=== PATIENT | female | born 1945 | race Caucasian/White ===

== ENCOUNTER → 2016-11-12 | Outpatient (CLI) | payer MEDICARE, BC ==
--- NOTE | 2016-11-16 10:36 | MM ---
Reason for exam: screening (asymptomatic). Last mammogram was performed 1 year ago. History: Patient is postmenopausal. Benign right breast needle localzation of the right breast, December 26, 2009. Physical Findings: A clinical breast exam by your physician is recommended on an annual basis and results should be correlated with mammographic findings. MG Screening Mammo w CAD Bilateral CC and MLO view(s) were taken. Prior study comparison: November 11, 2015, bilateral MG screening mammo w CAD. November 08, 2014, bilateral MG screening mammo w CAD. October 22, 2013, CAD bilateral diagnostic mammogram. August 03, 2012, CAD bilateral diagnostic mammogram. There are scattered fibroglandular densities. Density adjacent to the central right breast area of fat necrosis has increased from older priors and can be reassessed in 6 months. Otherwise, no significant change. ASSESSMENT: Probably benign, BI-RAD 3 RECOMMENDATION: Follow-up diagnostic mammogram of the right breast in 6 months.
== END ==
LOC: RADMAMWWP 10:51
PROVIDERS: ATTEND Family Medicine
DX: Z12.31 Encounter for screening mammogram for malignant neoplasm of breast (principal)

== ENCOUNTER → 2017-11-14 | Outpatient (CLI) | payer MEDICARE, BC ==
--- NOTE | 2017-11-14 13:09 | BD ---
EXAMINATION TYPE: MG DEXA axial skeleton. DATE OF EXAM: 11/14/2017 COMPARISON: None. Baseline exam. CLINICAL HISTORY: Postmenopausal female. Osteoporosis screening. Height: 59 Weight: 162.4 FRAX RISK QUESTIONS: Alcohol (3 or more units per day): no Family History (Parent hip fracture): no Glucocorticoids (More than 3mos): no (Ex: prednisone, prednisolone, methylprednisolone, dexamethasone, and hydrocortisone). History of Fracture in Adulthood: yes Secondary Osteoporosis: 1. Type 1 Diabetes: no 2. Hyperthyroidism: no 3. Menopause before 45: no 4. Malnutrition: no 5. Chronic liver disease: no Rheumatoid Arthritis: no Current Tobacco Use: no RISK FACTORS HISTORY OF: Family History of Osteoporosis: no Active: sometimes Diet low in dairy products/other sources of calcium: no Postmenopausal woman: after age 43 Lost more than 2 inches in height since high school: no Frequent falls: no MEDICATIONS: none Additional History: EXAM MEASUREMENTS: Bone mineral densitometry was performed using the [employer] System. Bone mineral density as measured about the Lumbar spine is: ----- L1-L4(G/cm2): 0.823 T Score Values are as follows: ----- L2: -3.0 ----- L3: -3.1 ----- L4: -3.1 ----- L1-L4: -3.0 Bone mineral density baseline Bone mineral density about the R hip (g/cm2): 0.808 Bone mineral density about the L hip (g/cm2): 0.769 T Score values are as follows: -----R Neck: -1.7 -----L Neck: -1.9 -----R Total: -1.2 -----L Total: -1.6 Bone mineral density baseline IMPRESSION: Osteoporosis (T Score less than -2.5) with regards to the lumbar spine and multiple levels. Osteopeni a with regards to the bilateral hips. There is increased fracture risk and therapy is usually indicated based on age. Re-Screen 1-2 years. NOTE: T-SCORE=SD OF THE YOUNG ADULT MEAN.
--- NOTE | 2017-11-15 08:48 | MM ---
Reason for exam: screening (asymptomatic). Last mammogram was performed 6 months ago. History: Patient is postmenopausal. Benign right breast needle localzation of the right breast, December 26, 2009. Benign excisional biopsy of the left breast, 1988. Took hormonal contraceptives for 17 years beginning at age 21. Took estrogen for 5 years beginning at age 48. Took progesterone for 5 years beginning at age 48. Physical Findings: A clinical breast exam by your physician is recommended on an annual basis and results should be correlated with mammographic findings. MG Diagnostic Mammo w CAD NATALIE Bilateral CC and MLO view(s) were taken. Prior study comparison: May 16, 2017, right breast MG diagnostic mammo RT w CAD. November 12, 2016, bilateral MG screening mammo w CAD. There are scattered fibroglandular densities. The previously seen focal asymmetry surrounding fat necrosis is less conspicuous and not increased from multiple prior change. These results were verbally communicated with the patient and result sheet given to the patient on 11/14/17. ASSESSMENT: Benign, BI-RAD 2 RECOMMENDATION: Routine screening mammogram of both breasts in 1 year.
== END ==
LOC: RADBDWWP 12:34
PROVIDERS: ATTEND Family Medicine
DX: R92.8 Other abnormal and inconclusive findings on diagnostic imaging of breast (principal); M81.8 Other osteoporosis without current pathological fracture; M85.88 Other specified disorders of bone density and structure, other site; Z78.0 Asymptomatic menopausal state
CPT/HCPCS: 77066; 77080

== ENCOUNTER → 2017-12-13 | Outpatient (CLI) | payer MEDICARE, BC ==
[~2017-12-13] MED LIST: DENOSUMAB 60 MG/ML 1 ML SYRINGE SQ ONE; OMALIZUMAB 150 MG VIAL SQ NR
[2017-12-13 09:01] VITALS: PULSE 76; RESP 16; TEMP 97.7
== END | disposition home or self-care (01) ==
LOC: PROCWHC3 08:41
PROVIDERS: ATTEND Family Medicine
DX: M81.0 Age-related osteoporosis without current pathological fracture (principal)
CPT/HCPCS: 96372; J0897

== ENCOUNTER → 2018-06-19 | Outpatient (CLI) | payer MEDICARE, BC ==
[~2018-06-19] MED LIST changes: -OMALIZUMAB 150 MG VIAL SQ NR
[2018-06-19 09:02] VITALS: BP 133/75; PULSE 80; RESP 16; TEMP 97.5
== END ==
LOC: PROCWHC3 08:55
PROVIDERS: ATTEND Family Medicine
DX: M81.0 Age-related osteoporosis without current pathological fracture (principal)
CPT/HCPCS: 96372; J0897

== ENCOUNTER → 2018-11-20 | Outpatient (CLI) | payer MEDICARE, BC ==
--- NOTE | 2018-11-21 13:36 | MM ---
Reason for exam: screening (asymptomatic). Last mammogram was performed 1 year ago. History: Patient is postmenopausal. Benign right breast needle localzation of the right breast, December 26, 2009. Benign excisional biopsy of the left breast, 1988. Took hormonal contraceptives for 17 years beginning at age 21. Took estrogen for 5 years beginning at age 48. Took progesterone for 5 years beginning at age 48. Physical Findings: A clinical breast exam by your physician is recommended on an annual basis and results should be correlated with mammographic findings. MG Screening Mammo w CAD Bilateral CC and MLO view(s) were taken. Prior study comparison: November 14, 2017, bilateral MG diagnostic mammo w CAD NATALIE. May 16, 2017, right breast MG diagnostic mammo RT w CAD. There are scattered fibroglandular densities. No suspicious abnormality. Right upper outer quadrant focal asymmetry is similar to priors back to 2016 with adjacent fat necrosis. No significant changes when compared with prior studies. ASSESSMENT: Benign, BI-RAD 2 RECOMMENDATION: Routine screening mammogram of both breasts in 1 year.
== END | disposition home or self-care (01) ==
LOC: RADMAMWWP 13:21
PROVIDERS: ATTEND Family Medicine
DX: Z12.31 Encounter for screening mammogram for malignant neoplasm of breast (principal)
CPT/HCPCS: 77067

== ENCOUNTER → 2018-12-19 | Outpatient (CLI) | payer MEDICARE, BC ==
[2018-12-19 13:35] VITALS: BP 137/65; PULSE 74; RESP 14; TEMP 97.9
== END ==
LOC: PROCWHC3 13:13
PROVIDERS: ATTEND Family Medicine
DX: M81.0 Age-related osteoporosis without current pathological fracture (principal)
CPT/HCPCS: 96372; J0897

== ENCOUNTER → 2019-07-04 | Outpatient (CLI) | payer MEDICARE, BC ==
[~2019-07-04] MED LIST changes: +DENOSUMAB 60 MG/ML 1 ML SYRINGE SQ NR; -DENOSUMAB 60 MG/ML 1 ML SYRINGE SQ ONE
[2019-07-04 15:12] VITALS: BP 132/74; PULSE 75; RESP 16; TEMP 97.8
== END | disposition home or self-care (01) ==
LOC: PROCWHC3 14:57
PROVIDERS: ATTEND Family Medicine
DX: M81.0 Age-related osteoporosis without current pathological fracture (principal)
CPT/HCPCS: 96372; J0897

== ENCOUNTER → 2020-03-27 | Outpatient (CLI) | payer MEDICARE, BC ==
--- NOTE | 2020-04-01 10:29 | MM ---
Reason for exam: screening (asymptomatic). Last mammogram was performed 1 year and 4 months ago. History: Patient is postmenopausal. Benign right breast needle localzation of the right breast, December 26, 2009. Benign excisional biopsy of the left breast, 1988. Took hormonal contraceptives for 17 years beginning at age 21. Took estrogen for 5 years beginning at age 48. Took progesterone for 5 years beginning at age 48. Physical Findings: A clinical breast exam by your physician is recommended on an annual basis and results should be correlated with mammographic findings. MG Screening Mammo w CAD Bilateral CC and MLO view(s) were taken. Prior study comparison: November 20, 2018, bilateral MG screening mammo w CAD. November 14, 2017, bilateral MG diagnostic mammo w CAD NATALIE. There are scattered fibroglandular densities. Marked increased density forming around 9-12 o'clock right breast fat necrosis. Other benign secretory and oil cyst calcifications. ASSESSMENT: Incomplete: need additional imaging evaluation, BI-RAD 0 RECOMMENDATION: Special view mammogram and ultrasound of the right breast. (3D) [facility] will attempt to contact patient to return for supplemental views and ultrasound.
== END | disposition home or self-care (01) ==
LOC: RADMAMWWP 10:54
PROVIDERS: ATTEND Family Medicine
DX: Z12.31 Encounter for screening mammogram for malignant neoplasm of breast (principal)
CPT/HCPCS: 77067

== ENCOUNTER → 2020-04-02 | Outpatient (CLI) | payer MEDICARE, BC ==
--- NOTE | 2020-04-02 16:30 | BD ---
EXAMINATION TYPE: Axial Bone Density DATE OF EXAM: 04/02/2020 COMPARISON: NONE CLINICAL HISTORY: Postmenopausal screening Height: 59 Weight: 153.1 FRAX RISK QUESTIONS: Alcohol (3 or more units per day): no Family History (Parent hip fracture): no Glucocorticoids (More than 3mos): no (Ex: prednisone, prednisolone, methylprednisolone, dexamethasone, and hydrocortisone). History of Fracture in Adulthood: yes Secondary Osteoporosis: 1. Type 1 Diabetes: no 2. Hyperthyroidism: no 3. Menopause before 45: no 4. Malnutrition: no 5. Chronic liver disease: no Rheumatoid Arthritis: no Current Tobacco Use: no RISK FACTORS HISTORY OF: Family History of Osteoporosis: no Active: yes Diet low in dairy products/other sources of calcium: no Postmenopausal woman: age 45 Lost more than 2 inches in height since high school: no MEDICATIONS: vitamins Osteoporosis Medications: Prolia How Long: total of four shots Additional History: EXAM MEASUREMENTS: Bone mineral densitometry was performed using the [employer] System. Bone mineral density as measured about the Lumbar spine is: ----- L1-L4(G/cm2): 0.830 T Score Values are as follows: ----- L2: -3.0 ----- L3: -3.1 ----- L4: -2.6 ----- L1-L4: -2.9 Bone mineral density has: increased 3.0 % since study of: 11.14.2017 Bone mineral density about the R hip (g/cm2): 0.856 Bone mineral density about the L hip (g/cm2): 0.765 T Score values are as follows: -----R Neck: -1.3 -----L Neck: -2.0 -----R Total: -1.2 -----L Total: -1.4 Bone mineral density has: increased 1.1 % since study of: 11.14.2017 IMPRESSION: Osteoporosis (T Score less than -2.5). There is increased fracture risk and therapy is usually indicated based on age. Re-Screen 1-2 years. NOTE: T-SCORE=SD OF THE YOUNG ADULT MEAN.
== END | disposition home or self-care (01) ==
LOC: RADBDWWP 10:40
PROVIDERS: ATTEND Family Medicine
DX: M81.0 Age-related osteoporosis without current pathological fracture (principal)
CPT/HCPCS: 77080

== ENCOUNTER → 2020-04-04 | Outpatient (CLI) | payer MEDICARE, BC ==
--- NOTE | 2020-04-07 08:26 | MM ---
Reason for exam: additional evaluation requested from abnormal screening. Last mammogram was performed less than 1 month ago. History: Patient is postmenopausal. Benign right breast needle localzation of the right breast, December 26, 2009. Benign excisional biopsy of the left breast, 1988. Took hormonal contraceptives for 17 years beginning at age 21. Took estrogen for 5 years beginning at age 48. Took progesterone for 5 years beginning at age 48. Physical Findings: Nurse did not find any significant physical abnormalities on exam. MG 3D Work Up W/Cad RT CC and MLO view(s) were taken of the right breast. Prior study comparison: March 27, 2020, bilateral MG screening mammo w CAD. November 20, 2018, bilateral MG screening mammo w CAD. Asymmetric breast tissue at site of biopsy right breast. These results were verbally communicated with the patient and result sheet given to the patient on 04/04/20. ASSESSMENT: Incomplete: need additional imaging evaluation, BI-RAD 0 RECOMMENDATION: Ultrasound of the right breast.
--- NOTE | 2020-04-07 08:29 | USB ---
Reason for exam: additional evaluation requested from abnormal screening. History: Patient is postmenopausal. Benign right breast needle localzation of the right breast, December 26, 2009. Benign excisional biopsy of the left breast, 1988. Took hormonal contraceptives for 17 years beginning at age 21. Took estrogen for 5 years beginning at age 48. Took progesterone for 5 years beginning at age 48. US Breast Workup Limited RT Right limited breast ultrasound including focal area of concern, retroareolar and axilla demonstrates a 11mm oval, circumscribed parallel heterogeneous shadowing at 10 o'clock. These results were verbally communicated with the patient and result sheet given to the patient on 04/04/20. ASSESSMENT: Suspicious, BI-RAD 4 RECOMMENDATION: Ultrasound core biopsy of the right breast. Called Dr. Levy's office with mammographic findings and has scheduled an appointment for the patient for 05/05/20 at 4:[address] Souza. Biopsy scheduled for 04/21/20 at 1:00. PRELIMINARY REPORT CALLED AND FAXED TO DR. SOUZA ON 04/04/20.
== END | disposition home or self-care (01) ==
LOC: RADMAMWWP 09:41
PROVIDERS: ATTEND Family Medicine
DX: R92.8 Other abnormal and inconclusive findings on diagnostic imaging of breast (principal)
CPT/HCPCS: 77065; 76642; G0279; 77061

== ENCOUNTER → 2020-04-21 | Day surgery (SDC) | payer MEDICARE, BC ==
[2020-04-21 12:14] VITALS: RESP 16; TEMP 98.6
[2020-04-21 14:06] VITALS: BP 130/80; PULSE 69
--- NOTE | 2020-04-21 14:34 | USB ---
EXAMINATION TYPE: US biopsy breast VAD RT DATE OF EXAM: 04/21/2020 CLINICAL HISTORY: R92.8 ABN MAMMO. TECHNIQUE: Ultrasound guided vaccuum assisted core biopsy of right breast. COMPARISON: NONE FINDINGS: The ultrasound guided core biopsy procedure was explained to the patient. The risks, benefits, alternatives were discussed. An informed consent was then obtained. Timeout was performed. The patient was placed in supine positioning for imaging and for the procedure. The overlying skin was prepped with betadine and sterilely draped in usual sterile fashion. Lidocaine 1% was used as anesthetic into the skin and deeper breast tissue up to area of concern in the breast. A small skin howie was made with surgical scalpel. Under ultrasound guidance, a 12-gauge vacuum assisted biopsy device was used to obtain 5 core samples. A biopsy clip was left in lesion. Sample was within the container. It was also a caseous type aspirate with the initial sample. Postprocedure mammogram is diminished density of the area. Consider chronic abscess within the differential. Good hemostasis was obtained with direct pressure. Discharge instructions were discussed with the patient. The patient will follow up with the referring physician for results. Postprocedure mammogram: The patient was transferred to mammography for physician ordered post procedure mammogram for clip placement verification. The clip is in the expected region of the biopsy. This is not as well-visualized on the medial lateral view. The patient tolerated the procedure well without any immediate complication. The patient was discharged to home in stable condition. IMPRESSION: 1. Successful ultrasound guided biopsy right breast. Pathology Results: Benign RIGHT BREAST, 10:00, ULTRASOUND GUIDED CORE BIOPSY: Fibroadipose tissue with fibrosis/scar, negative for malignancy. Breast elements are not identified. Recommendation Follow up ultrasound of the right breast in 6 months. KELVIN
--- NOTE | 2020-04-21 14:35 | MM ---
EXAMINATION TYPE: US biopsy breast VAD RT DATE OF EXAM: 04/21/2020 CLINICAL HISTORY: R92.8 ABN MAMMO. TECHNIQUE: Ultrasound guided vaccuum assisted core biopsy of right breast. COMPARISON: NONE FINDINGS: The ultrasound guided core biopsy procedure was explained to the patient. The risks, benef its, alternatives were discussed. An informed consent was then obtained. Timeout was performed. The patient was placed in supine positioning for imaging and for the procedure. The overlying skin w as prepped with betadine and sterilely draped in usual sterile fashion. Lidocaine 1% was used as ane sthetic into the skin and deeper breast tissue up to area of concern in the breast. A small skin tariq k was made with surgical scalpel. Under ultrasound guidance, a 12-gauge vacuum assisted biopsy device was used to obtain 5 core samples . A biopsy clip was left in lesion. Sample was within the container. It was also a caseous type asp irate with the initial sample. Postprocedure mammogram is diminished density of the area. Consider ch ronic abscess within the differential. Good hemostasis was obtained with direct pressure. Discharge instructions were discussed with the anni brown. The patient will follow up with the referring physician for results. Postprocedure mammogram: The patient was transferred to mammography for physician ordered post proced ure mammogram for clip placement verification. The clip is in the expected region of the biopsy. Thi s is not as well-visualized on the medial lateral view. The patient tolerated the procedure well without any immediate complication. The patient was dischar ged to home in stable condition. IMPRESSION: 1. Successful ultrasound guided biopsy right breast.
== END ==
LOC: RADUSWWP 12:02
PROVIDERS: ATTEND Surgery
DX: N60.31 Fibrosclerosis of right breast (principal); Z98.890 Other specified postprocedural states
CPT/HCPCS: 88305; 77065; 19083; A4648; J2001

== ENCOUNTER → 2020-11-10 | Outpatient (CLI) | payer MEDICARE, BC ==
--- NOTE | 2020-11-10 11:42 | NM ---
EXAMINATION TYPE: NM stress lexiscan cardiolite DATE OF EXAM: 11/10/2020 COMPARISON: NONE HISTORY: Chest pain TECHNIQUE: After the intravenous administration of 9.8 mCi Tc 99m Sestamibi - Cardiolite resting SPE CT images acquired 45 minutes post injection. The patient received 0.4mg Lexiscan, 25.9 mCi Tc 99m Sestamibi - Stress images obtained [address] injection FINDINGS: Review of stress and rest SPECT images demonstrates decreased uptake along the anteroseptal left vent ricle on stress as compared to rest imaging. Gated analysis shows normal wall motion with an estimat ed left ventricular ejection fraction of 64 %. 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 Results relayed telephonically to office of Dr. Levy.
--- NOTE | 2020-11-11 08:29 | EST ---
EXERCISE STRESS DATE OF SERVICE: 11/10/2020 AGE: 74 SEX: Female HT: 5' WT: 154 lbs. PROTOCOL: Lexiscan Cardiolite STAGE: N/A DURATION OF EXERCISE: 8 min. HEART RATE REST: 76 BLOOD PRESSURE REST: 138/78 MAXIMUM HEART RATE ACHIEVED: 101 MAXIMUM BLOOD PRESSURE: 133/66 85% MPHR: 122 100% MPHR: 144 METS: N/A INDICATIONS: Chest pain. CLINICAL INFORMATION: STRESS DATA: Heart rate 76, pressure is 138/78 mmHg. Baseline EKG showed sinus mechanism. 0.4 mg of Lexiscan given over 15 seconds per protocol. Max heart rate was 101 beats per minute. Maximum pressure was 133/66 mmHg. Clinically, the patient did not have any symptoms and the EKG did not show any significant ST or T-wave abnormalities concerning for ischemia. CONCLUSION: 1. Nondiagnostic electrocardiogram stress testing in response to Lexiscan. 2. Please follow up on the Cardiolite portion on a separate report from Radiology Department. MMODL / IJN: [id number] /
== END | disposition home or self-care (01) ==
LOC: RADNMMAIN 07:53
PROVIDERS: ATTEND Family Medicine
DX: R07.9 Chest pain, unspecified (principal)
CPT/HCPCS: 93017; 78452; A9500

== ENCOUNTER → 2020-11-11 | Outpatient (CLI) | payer MEDICARE, BC ==
--- NOTE | 2020-11-11 09:51 | MM ---
Reason for exam: follow-up at short interval from prior study. Last mammogram was performed 7 months ago. History: Patient is postmenopausal. Benign US biopsy breast VAD RT of the right breast, April 21, 2020. Benign right breast needle localzation of the right breast, December 26, 2009. Benign excisional biopsy of the left breast, 1988. Took hormonal contraceptives for 17 years beginning at age 21. Took estrogen for 5 years beginning at age 48. Took progesterone for 5 years beginning at age 48. Physical Findings: Nurse did not find any significant physical abnormalities on exam. MG 3D Diag Mammo W/Cad RT CC and MLO view(s) were taken of the right breast. Prior study comparison: April 21, 2020, right breast MG diagnostic mammo RT wo CAD. April 04, 2020, right breast MG 3d work up w/cad RT. March 27, 2020, bilateral MG screening mammo w CAD. November 20, 2018, bilateral MG screening mammo w CAD. November 14, 2017, bilateral MG diagnostic mammo w CAD NATALIE. There are scattered fibroglandular densities. Previous mammotome biopsy in the right breast. Stable scar and fat necrosis calcifications 9-10 o'clock right breast. Stable central focal asymmetry. Some benign anterior secretory calcifications are increasing. These results were verbally communicated with the patient and result sheet given to the patient on 11/11/20. ASSESSMENT: Benign, BI-RAD 2 RECOMMENDATION: Return to routine screening mammogram schedule for both breasts. Back on schedule for March 2021.
== END | disposition home or self-care (01) ==
LOC: RADMAMWWP 08:57
PROVIDERS: ATTEND Surgery
DX: R92.8 Other abnormal and inconclusive findings on diagnostic imaging of breast (principal)
CPT/HCPCS: 77065; G0279; 77061

== ENCOUNTER → 2020-11-12 | Outpatient (CLI) | payer MEDICARE, BC ==
[2020-11-12 11:22] VITALS: BP 142/65; PULSE 87; RESP 16; TEMP 97.8
== END ==
LOC: PROCWHC3 11:01
PROVIDERS: ATTEND Family Medicine
DX: M81.0 Age-related osteoporosis without current pathological fracture (principal)
CPT/HCPCS: 96372; J0897

== ENCOUNTER → 2021-04-16 | Outpatient (CLI) | payer MEDICARE, BC ==
--- NOTE | 2021-04-17 13:49 | MM ---
Reason for exam: screening (asymptomatic). Last mammogram was performed 5 months ago. History: Patient is postmenopausal. Benign US biopsy breast VAD RT of the right breast, April 21, 2020. Benign right breast needle localzation of the right breast, December 26, 2009. Benign excisional biopsy of the left breast, 1988. Took hormonal contraceptives for 17 years beginning at age 21. Took estrogen for 5 years beginning at age 48. Took progesterone for 5 years beginning at age 48. Physical Findings: A clinical breast exam by your physician is recommended on an annual basis and results should be correlated with mammographic findings. MG 3D Screening Mammo W/Cad Bilateral CC and MLO view(s) were taken. Prior study comparison: November 11, 2020, right breast MG 3d diag mammo w/cad RT. April 04, 2020, right breast MG 3d work up w/cad RT. There are scattered fibroglandular densities. Finding #1: Stable achitectural distortion in the right breast consistent with known excision changes. Finding #2: There are typically benign round, linear calcifications in both breasts. There is a chronic nodularity in the right breast. There is no discrete abnormality. ASSESSMENT: Benign, BI-RAD 2 RECOMMENDATION: Routine screening mammogram of both breasts in 1 year.
== END | disposition home or self-care (01) ==
LOC: RADMAMWWP 14:36
PROVIDERS: ATTEND Surgery
DX: Z12.31 Encounter for screening mammogram for malignant neoplasm of breast (principal); Z78.0 Asymptomatic menopausal state
CPT/HCPCS: 77063; 77067

== ENCOUNTER → 2021-09-24 | Outpatient (CLI) | payer BC, MEDICARE ==
[2021-09-24 13:20] VITALS: BP 150/82; PULSE 80; RESP 16; TEMP 94.7
== END ==
LOC: PROCWHC3 12:49
PROVIDERS: ATTEND Family Medicine
DX: M81.0 Age-related osteoporosis without current pathological fracture (principal)
CPT/HCPCS: 96372; J0897

== ENCOUNTER → 2022-06-07 | Outpatient (CLI) | payer MEDICARE ==
--- NOTE | 2022-06-07 10:19 | BD ---
EXAMINATION TYPE: Axial Bone Density DATE OF EXAM: 06/07/2022 COMPARISON: [id number] CLINICAL HISTORY: 76 years year old Female. ICD-10 CODE: M899 DISORDER OF BONE Height: 58.5 Weight: 151 FRAX RISK QUESTIONS: Alcohol (3 or more units per day): NO Family History (Parent hip fracture): NO Glucocorticoids (More than 3mos): NO History of Fracture in Adulthood: FOOT Secondary Osteoporosis: 1. Type 1 Diabetes: NO 2. Hyperthyroidism: NO 3. Menopause before 45: 4. Malnutrition: NO 5. Chronic liver disease: NO Rheumatoid Arthritis: NO Current Tobacco Use: NO RISK FACTORS HISTORY OF: Hip Fracture (Right/Left): NO Spine Fracture: NO History of Wrist Fracture: NO Surgery to Spine/Hip(right/left)/Wrist (right/left): NO Family History of Osteoporosis: NO Active: NO Diet low in dairy products/other sources of calcium: NO Postmenopausal woman: YES Take estrogen and/or progesterone medications: NO Lost more than 2 inches in height since high school: NO Frequent falls: NO Poor Health: NO Hyperparathyroidism: NO Adrenal Insufficiency: NO MEDICATIONS: Prednisone or other steroids: NO Thyroid Medications: NO Osteoporosis Medications: YES, Which medication: PROLIA INJECTION EVERY 6 MONTHS How Long: PAST YEARS Additional Medications: BP MEDS, VIT D, CALCIUM, K2, VIT C EXAM MEASUREMENTS: Bone mineral densitometry was performed using the [employer] System. Bone mineral density as measured about the Lumbar spine is: ----- L1-L4(G/cm2): 0.850 T Score Values are as follows: ----- L1: -2.6 ----- L2: -2.7 ----- L3: -3.3 ----- L4: -2.7 ----- L1-L4: -2.7 Bone mineral density has: UNCHANGED 0.0 % since study of: 04/02/2020 Bone mineral density about the R hip (g/cm2): 0.850 Bone mineral density about the L hip (g/cm2): 0.817 T Score values are as follows: -----R Neck: -1.4 -----L Neck: -1.6 -----R Total: -1.3 -----L Total: -1.3 Bone mineral density has: INCREASED 0.4 % since study of: 04/02/2020 FRAX%s: The graph provided illustrates a 18.7% chance for a major osteoporotic fx and a 4.0% chance f or the hips probability for fx in 10 years time. IMPRESSION: Osteoporosis (T Score less than -2.5). There is increased fracture risk and therapy is usually indicated based on age. Re-Screen 1-2 years. NOTE: T-SCORE=SD OF THE YOUNG ADULT MEAN.
--- NOTE | 2022-06-08 08:31 | MM ---
Reason for Exam: Screening (asymptomatic). Last mammogram was performed 1 year(s) and 2 month(s) ago. Patient History: Menarche at age 10. First Full-Term at age 21. Postmenopausal. Estrogen for 5 years from age 48 until age 53. Progesterone for 5 years from age 48 until age 53. Hormonal Contraceptives for 17 years from age 21 until age 38. 1988, Benign Excisional Biopsy on the left side. 04/21/2020, Benign Core Biopsy on the right side. 12/26/2009, Benign Excisional Biopsy on the right side. Risk Values: Debby 5 year model risk: 2.3%. NCI Lifetime model risk: 4.1%. Prior Study Comparison: 04/21/2020 Right Diagnostic Mammogram, [facility]. 11/11/2020 Right Diagnostic Mammogram, [facility]. 04/16/2021 Bilateral Screening Mammogram, [facility]. Tissue Density: There are scattered fibroglandular densities. Findings: Analyzed By CAD. Stable focal distortion and large dystrophic calcification in the right breast middle to posterior depth slightly outer aspect. Some benign-appearing linear and tiny round calcifications bilaterally right greater than left are redemonstrated. Focal asymmetric tissue negative distortion right breast is stable from prior mammograms. Benign appearing bilateral axillary lymph nodes are seen. There is no suspicious new group of microcalcifications or new suspicious mass in either breast. Overall Assessment: Benign, BI-RAD 2 Management: Screening Mammogram of both breasts in 1 year. A clinical breast exam by your physician is recommended on an annual basis and results should be correlated with mammographic findings. Electronically signed and approved by: Deng Thao M.D.
== END | disposition home or self-care (01) ==
LOC: RADMAMWWP 09:21
PROVIDERS: ATTEND Family Medicine
DX: Z12.31 Encounter for screening mammogram for malignant neoplasm of breast (principal); M81.0 Age-related osteoporosis without current pathological fracture; Z78.0 Asymptomatic menopausal state; Z98.890 Other specified postprocedural states
CPT/HCPCS: 77067; 77080

== ENCOUNTER → 2023-09-16 | Outpatient (CLI) | payer MEDICARE ==
--- NOTE | 2023-09-20 13:34 | MM ---
Reason for Exam: Screening (asymptomatic). Last mammogram was performed 1 year(s) and 3 month(s) ago. Patient History: Menarche at age 10. First Full-Term at age 21. Postmenopausal. Estrogen for 5 years from age 48 until age 53. Progesterone for 5 years from age 48 until age 53. Hormonal Contraceptives for 17 years from age 21 until age 38. 1988, Benign Excisional Biopsy on the left side. 04/21/2020, Benign Core Biopsy on the right side. 12/26/2009, Benign Excisional Biopsy on the right side. Risk Values: Debby 5 year model risk: 2.3%. NCI Lifetime model risk: 3.8%. Prior Study Comparison: 11/14/2017 Bilateral Diagnostic Mammogram, [facility]. 11/20/2018 Bilateral Screening Mammogram, [facility]. 03/27/2020 Bilateral Screening Mammogram, [facility]. 04/04/2020 Right Diagnostic Mammogram, [facility]. 04/21/2020 Right Diagnostic Mammogram, [facility]. 11/11/2020 Right Diagnostic Mammogram, [facility]. 04/16/2021 Bilateral Screening Mammogram, [facility]. 06/07/2022 Bilateral MG screening mammo w CAD, [facility]. Tissue Density: The breast tissue is almost entirely fat. Findings: Analyzed By CAD. There is no suspicious group of microcalcifications or new suspicious mass. Benign-appearing calcifications bilaterally. Overall Assessment: Benign, BI-RAD 2 Management: Screening Mammogram of both breasts in [address] [facility] will attempt to contact patient to return for supplemental views and ultrasound if indicated. Patient should continue monthly self-breast exams. A clinical breast exam by your physician is recommended on an annual basis. This exam should not preclude additional follow-up of suspicious palpable abnormalities. Note on Debby scores and lifetime risk: 1. A Debby score greater than 3% is considered moderate risk. If this is the case, consider specialist referral to assess eligibility for a risk reducing agent. 2. If overall lifetime risk for the development of breast cancer is 20% or higher, the patient may qualify for future screening with alternating mammogram and breast MRI. Electronically signed and approved by: Sumanth Lombardo DO
== END | disposition home or self-care (01) ==
LOC: RADMAMWWP 12:15
PROVIDERS: ATTEND Family Medicine
DX: Z12.31 Encounter for screening mammogram for malignant neoplasm of breast (principal); Z78.0 Asymptomatic menopausal state
CPT/HCPCS: 77063; 77067